=== PATIENT | female | born 1930 | race Caucasian/White ===

== ENCOUNTER → 2016-08-11 | Outpatient (CLI) | payer MEDICARE, OTHER ==
[~2016-08-11] MED LIST: CALC500T PO; CHRO200T9 PO; DIGO125T73 PO; DILT240C70 PO; FURO40TA4 PO; LEVO150T75 PO; MAGN500C PO; POTA10TA97 PO; TEMA30CA6 PO; TOLT4CAP PO; WARF5TAB72 PO
--- NOTE | 2016-08-11 14:56 | RADRPT ---
PROCEDURE: Left knee radiographs. CLINICAL INDICATION: Left knee pain. TECHNIQUE: Three views. Weight bearing. Frontal, lateral, and patellar view. COMPARISON: No prior studies are available for comparison. FINDINGS: There is no fracture or dislocation. The soft tissues are normal. There are degenerative changes with osteophytes arising from all 3 joint compartment margins. There is medial, lateral, and patellofemoral joint compartment narrowing. There is lateral joint compart ment deformity and subarticular sclerosis. There is no lytic or blastic lesion. There is no radiopaque foreign body. IMPRESSION: 1. Severe degenerative changes of the left knee. 2. No acute abnormality. RPTAT: QQ .Guy Johnson MD, Date Time Electronically viewed and signed by .Guy Johnson MD, on 08/11/2016 14:56 .R/
--- NOTE | 2016-08-12 00:35 | HKNOTE ---
DATE OF SERVICE: 08/11/2016 MAIN COMPLAINT: Injury to the left knee. HISTORY OF MAIN COMPLAINT: The patient is an 86-year-old female who fell down and injured her left knee 2 weeks ago. She landed on both knees. Subsequently, the left knee developed ecchymosis over the anterior aspect of the knee. 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 Of vital importance, please note that she states that she has never had any pain in this knee prior to her fall. PRESENT COMPLAINTS: The patient has minimal pain in her knee. She has ecchymosis over the anterior aspect of the knee. When she does get pain, it is aggravated by walking. She gets minimal pain at rest. She does have a long history of back problems and spinal stenosis. She has not had any maxx tments for that. She can currently walk about a block without stopping when she uses a cane. She i s not limping. She does not have a shoe lift. She can clip her toenails and tie her shoelaces. PAST ORTHOPEDIC HISTORY: Right knee replacement by Dr. Fritz Ordoñez in 1999. The patient has been totally delighted with the results of the surgery. She has never had any problems with it. PRIOR CORTISONE INTAKE: None. ALCOHOL INTAKE: None. OTHER JOINT PROBLEMS: None. BLOOD TESTS FOR ARTHRITIS: None. PRIOR INJURIES TO HIPS OR KNEES: None. WORK STATUS: None. PAST MEDICAL HISTORY: 1. Leaky heart valve. 2. Pulmonary hypertension. 3. Atrial fibrillation. PAST SURGICAL HISTORY: 1. Laminectomy. 2. Gallbladder removed. 3. Knee replacement in 1999. 4. Pacemaker. ALLERGIES: PENICILLIN. MEDICATIONS: 1. Warfarin 5 mg a day. 2. Melatonin 3 mg a day. 3. Tiazac 120 mg a day. 4. Losartan 50 mg tablets daily. 5. Lexapro 10 mg daily. 6. Ativan 1 mg daily. 7. Vitamin D3. 8. Digoxin 125 mg a day. 9. Hydrochloroquine sulfate 200 mg half a tablet daily. 10. Detrol long-acting 4 mg once a day. 11. Furosemide 40 mg once a day. 12. Synthroid 1 tablet a day. FAMILY HISTORY: Father at unstated age of cancer. Mother at unstated age of a stroke. SYSTEMS REVIEW: Skipping heartbeats, varicose veins, tingling sensations in her feet. Hypertension . Currently on heparin. Occasional swelling of the ankles. HABITS: The patient does not smoke or drink alcoholic beverages. HOME HEALTH CNA: Benoit Branham MD, [id number], [place], [place], [address]. PHYSICAL EXAMINATION: GENERAL: An incredibly youthful and remarkably vibrant looking 86-year-old female. She walks with a cane, but appears to have minimal pain. VITAL SIGNS: Height 5 foot 4, weight 185 pounds. Blood pressure 125/60, temperature 97.6. HIPS: Both hips have full range of motion without pain. LEFT KNEE: The left knee shows normal alignment. Active and passive extension is 0 degrees. Activ e and passive flexion is 110 degrees. The medial and lateral collateral ligaments and cruciate liga ments are intact. Maria E test is negative. There is no effusion, tenderness, scarring, or cysts. The patella tracks normally. There is no tenderness on the articular surface of the patella or in the patellar groove. The Q angle is normal. Extensive ecchymosis over the completely anterior aspe ct of the left knee extending above the knee. The skin itself is intact. 6+ crepitus in the knee, none in the patella. Minimal pain on putting the knee through range of motion. RIGHT KNEE: The right knee shows normal alignment. Active and passive extension is 0 degrees. Act donny and passive flexion is 135 degrees. The medial and lateral collateral ligaments and cruciate li gaments are intact. Maria E test is negative. There is no effusion, tenderness, scarring, or cysts . 4+ crepitus in the knee, none in the patella. The patella tracks normally. There is no tenderne ss on the articular surface of the patella or in the patellar groove. The Q angle is normal. IMAGING: Plain x-rays of the left knee obtained today show exceedingly severe degenerative osteoart hritis of the left knee affecting all 3 compartments. There are no visible fractures anywhere in th josiane views. In particular, the patella is intact. DIAGNOSES: 1. Exceedingly severe degenerative osteoarthritis of the left knee. 2. Recent fall without bone injury to the knee. 3. Leaky heart valve. 4. Atrial fibrillation. 5. Pulmonary hypertension. 6. Currently on warfarin. 7. Status post right knee replacement. 8. ALLERGIC TO PENICILLIN. DISCUSSION AND MANAGEMENT: The patient absolutely denies that she has never had any pain in this kn ee prior to fall. X-rays show exceedingly severe degenerative osteoarthritis of the left knee. The re is complete [id number] contact medially and virtually similar changes in the lateral compartmen t and patellofemoral joint. Moderate osteoporosis. It is remarkable that she is able to get around with such an arthritic knee, but certainly this is n ot unheard of. She was quite surprised to learn she has severe arthritis in her knee. She was give n reassurance that she does not have any fractures as a result of her fall. She was advised that she will eventually need a left knee replacement "when she is an old lady." She will call if and when further treatment is desired. Dictated By: GIO SABILLON/DUSTY Conf#: [id number] DID#: [id number]
== END | disposition home or self-care (01) ==
LOC: HKI 14:33
DX: M17.12 Unilateral primary osteoarthritis, left knee (principal); S89.92XA Unspecified injury of left lower leg, initial encounter; I38 Endocarditis, valve unspecified; I48.91 Unspecified atrial fibrillation; I27.2 Other secondary pulmonary hypertension; W18.30XA Fall on same level, unspecified, initial encounter; Z96.651 Presence of right artificial knee joint; Z79.01 Long term (current) use of anticoagulants; Z88.0 Allergy status to penicillin